=== PATIENT | male | born 1955 | race Caucasian/White ===

== ENCOUNTER 2021-03-10 06:53 | Day surgery (SDC) | payer BC ==
[~2021-03-10] VITALS: Ht 170.2 cm; Wt 69.4 kg
== END 2021-03-10 09:00 | disposition home or self-care (01) ==
LOC: ORSCSDS 06:53
PROVIDERS: Student in an Organized Health Care Education/Training Program
PROC: 0DBN8ZX Excision of Sigmoid Colon, Via Natural or Artificial Opening Endoscopic, Diagnostic (ICD-10-PCS; principal; 2021-03-10 08:00)
DX: K92.1 Melena (principal); Z86.010 Personal history of colon polyps; D12.5 Benign neoplasm of sigmoid colon; K64.8 Other hemorrhoids; K64.4 Residual hemorrhoidal skin tags; K21.9 Gastro-esophageal reflux disease without esophagitis
CPT/HCPCS: 88305; J2704; J7120

== ENCOUNTER → 2024-03-04 | Outpatient (CLI) | payer BC | LOC: LAB SHORT 15:40 → LAB 15:40 | DX: L02.214 Cutaneous abscess of groin (principal) | CPT/HCPCS: 87070; 87077; 87186; 87205 ==